=== PATIENT | female | born 1955 | race Caucasian/White ===

== ENCOUNTER 2024-08-12 09:40 | Emergency (ER) | payer MEDICARE, SELFPAY ==
[2024-08-12 10:09] VITALS: BP 134/91; PULSE 69; RESP 18; TEMP 36.4; O2SAT 98
--- NOTE | 2024-08-12 10:09 | ED.URI ---
HPI - URI/Sore Throat General Chief Complaint: Upper Respiratory Infection Stated Complaint: ear clog and swollen glands Time Seen by Provider: 08/12/24 10:09 Source: patient, RN notes reviewed and old records reviewed Mode of arrival: ambulatory Limitations: no limitations History of Present Illness HPI Narrative: patient presents accompanied by her granddaughter who is ill. Patient is complaining of left ear pain that has been present for a couple of days. She reports she has not been taking anything for this, says that she is concerned about this even more than she typically would be, as she has to fly home in a couple of days. She denies any injury or trauma. She denies any fever, chills, sweats. She voices no other concerns or complaints at this time. Related Data Home Medications ?Medication ?Instructions ?Recorded ?Confirmed ?Last Taken ?Type alendronate 70 mg tablet mg PO 08/12/24 Unknown History aspirin 81 mg chewable tablet 81 mg PO DAILY 08/12/24 Unknown History (Prem Chewable Low Dose Aspirin) carvedilol 6.25 mg tablet mg 08/12/24 Unknown History furosemide 40 mg tablet mg 08/12/24 Unknown History meloxicam 15 mg tablet mg 08/12/24 Unknown History metformin 500 mg tablet,extended mg PO 08/12/24 Unknown History release 24 hr olmesartan 20 mg tablet mg 08/12/24 Unknown History omeprazole 20 mg capsule,delayed mg 08/12/24 Unknown History release rosuvastatin 10 mg tablet mg 08/12/24 Unknown History spironolactone 25 mg tablet mg 08/12/24 Unknown History sucralfate 1 gram tablet 08/12/24 Unknown History torsemide 20 mg tablet mg 08/12/24 Unknown History Allergies Allergy/AdvReac Type Severity Reaction Status Date / Time latex Allergy Mild Rash Verified 08/12/24 10:24 Sulfa (Sulfonamide Allergy Mild Rash Verified 08/12/24 10:24 Antibiotics) Review of Systems Review of Systems: All systems reviewed & are unremarkable except as noted in HPI and below Constitutional: Constitutional: Reports no additional constitutional complaints ENT: Reports system reviewed and no additional complaints, except as documented and Reports otalgia Cardiovascular: Cardiovascular: Reports no additional cardiovascular complaints Respiratory: Respiratory: Reports no additional respiratory complaints Gastrointestinal: Gastrointestinal: Reports no additional gastrointestinal complaints PMFSH Comments At the time of my signature, I reviewed and agree with the nursing past medical, surgical, social, and family history. There is no relevant family history pertinent to the patient complaint. Exam Const: General: cooperative, no acute distress, alert and awake Orientation/consciousness: oriented to person, oriented to place and oriented to time HENMT: Head: normal to inspection Ears: TM abnormal erythematous on the left Resp: Effort & Inspection: normal respiratory effort and able to speak in complete sentences Auscultation: clear to auscultation bilaterally, no crackles, no rales, no rhonchi and no wheezes Cardio: Palpation: normal PMI Rate: regular rate Rhythm: regular rhythm Heart sounds: S1 normal heart sound present and S2 normal heart sound present Neuro: General: oriented to person, oriented to place and oriented to time Cranial nerves: Yes CN's II-XII intact bilaterally Psych: Appearance: grossly normal Thought process: Normal thought process present Insight: Good insight present (Psych) Judgement: Good judgement present (Psych) Course Course Level of Care: Express Care Visit Vital Signs Vital signs: Reviewed MDM - URI/Sore Throat MDM Narrative Medical decision making narrative: Patient with otitis media, has had significant exposure in the home to atypical pneumonia. Given this, will treat otitis media with azithromycin to cover for possible atypical pneumonia as well. Patient in agreement with plan. Discharge instructions reviewed with patient, as well as provided in writing per nursing staff. The instructions also include specific and strict return/GO TO THE ER as well as f/u information. All questions have been answered, and the patient deny any further questions with discharge and discharge plan. Some parts of this dictation were generated by voice recognition software and may contain typographical and/or grammatical inaccuracies. Differential Diagnosis Differential diagnosis: Likely upper respiratory infection and pharyngitis Medical Records Attestation: I reviewed the patient's medical records. Discharge Plan Discharge Clinical Impression: Otitis media Qualifiers: Otitis media type: suppurative Chronicity: acute Laterality: left Recurrence: not specified as recurrent Spontaneous tympanic membrane rupture: without spontaneous rupture Qualified Code(s): H66.002 - Acute suppurative otitis media without spontaneous rupture of ear drum, left ear Patient Disposition: Home, Self-Care Condition: Stable Instructions: Antibiotic Form, Earache (ED) Additional Instructions: take medications as prescribed. Follow with primary care provider. Emergency department for new or worsening symptoms Patient Language: Vietnamese Prescriptions: New azithromycin 250 mg tablet See Rx Instructions .ROUTE .COMPLEX Qty: 6 0RF Rx Instructions: For 250 mg dose pack: take 500 mg today (day 1), then 250 mg for 4 days (days 2-5) No Action furosemide 40 mg tablet carvedilol 6.25 mg tablet torsemide 20 mg tablet meloxicam 15 mg tablet sucralfate 1 gram tablet alendronate 70 mg tablet PO spironolactone 25 mg tablet omeprazole 20 mg capsule,delayed release(DR/EC) metformin 500 mg tablet extended release 24 hr PO olmesartan 20 mg tablet rosuvastatin 10 mg tablet aspirin [Prem Chewable Aspirin] 81 mg tablet,chewable 81 mg PO DAILY Follow-up/Referrals: UNKNOWN,DOCTOR [Primary Care Provider] - 1 Week Time of Disposition: 10:28
== END 2024-08-12 10:35 | disposition home or self-care (01) ==
PROVIDERS: Emergency Provider Nurse Practitioner Family
DX: H66.002 Acute suppurative otitis media without spontaneous rupture of ear drum, left ear (principal); I10 Essential (primary) hypertension; E78.00 Pure hypercholesterolemia, unspecified; K21.9 Gastro-esophageal reflux disease without esophagitis; M19.90 Unspecified osteoarthritis, unspecified site; E11.9 Type 2 diabetes mellitus without complications; E03.9 Hypothyroidism, unspecified; Z86.16 Personal history of COVID-19
CPT/HCPCS: 99213; G0463